=== PATIENT | female | born 1975 | race Caucasian/White ===

== ENCOUNTER 2019-06-04 22:55 | Emergency (ER) | payer OTHER ==
[~2019-06-04] VITALS: Ht 157.5 cm; Wt 62.6 kg
[2019-06-04 23:32] VITALS: BP 116/74
[2019-06-04] MEDS ORDERED: ACETAMINOPHEN 325 MG TABLET ONE (23:57)
--- NOTE | 2019-06-04 23:59 | NUR ---
FLU SWAB SENT TO LAB
[2019-06-05] MEDS ORDERED: ACETAMINOPHEN 325 MG TABLET PO ONE
== END 2019-06-05 00:22 | disposition home or self-care (01) ==
LOC: ER 23:01
DX: J06.9 Acute upper respiratory infection, unspecified (principal); Z98.890 Other specified postprocedural states

== ENCOUNTER 2019-09-14 22:31 | Emergency (ER) | payer OTHER ==
[~2019-09-14] VITALS: Ht 157.5 cm; Wt 62.6 kg
[2019-09-14 22:35] VITALS: BP 130/95
--- NOTE | 2019-09-14 23:13 | NUR ---
URINE COLLECTED AND SENT TO THE LAB.
--- NOTE | 2019-09-14 23:24 | NUR ---
PATIENT CAME TO ER C/O DYSURIA AND HEMATURIA FOR 5x HOURS. AAOX4. NO SOB. BREATHING EVENLY AND UNLABORED ON ROOM AIR.
[2019-09-14 23:44] LABS: APPEARANCE,URINE Clear (CLEAR); BILIRUBIN,URINE Negative (NEGATIVE); BLOOD, URINE Large Ery/uL (NEGATIVE); COLOR,URINE Pink (YELLOW); KETONES,URINE Negative (NEGATIVE); LEUKOCYTE ESTERASE ,URINE Small (NEGATIVE); NITRITE, URINE Negative (NEGATIVE); PH,URINE 8.5 (5.0-8.0); PROTEIN,URINE 100 mg/dl (NEGATIVE); UGLUCOSE Negative (NEGATIVE); UROBILINOGEN,URINE 0.2 EU/dL (0.2)
[2019-09-15] MEDS ORDERED: PHENAZOPYRIDINE HCL 200 MG TABLET PO ONE
[2019-09-15] MEDS ORDERED: NITROFURANTOIN/NITROFURAN MAC 100 MG CAPSULE PO ONE
[2019-09-15 00:03] LABS: BACTERIA,URINE Few /HPF (None Seen); RBC,URINE TOO NUMEROUS TO COUN /HPF (0-2); SQUAMOUS EPITHELIAL CELL,UR Few /HPF (None Seen)
[2019-09-15] MEDS ORDERED: NITROFURANTOIN/NITROFURAN MAC 100 MG CAPSULE ONE (00:18)
[2019-09-15] MEDS ORDERED: PHENAZOPYRIDINE HCL 200 MG TABLET ONE (00:18)
--- NOTE | 2019-09-15 00:25 | NUR ---
Patient discharged to home in stable condition. Written and verbal after care instructions given. Patient verbalizes understanding of instruction.
--- NOTE | 2019-09-15 00:26 | NUR ---
Prescriptions given to patient and explained.
== END 2019-09-15 00:27 | disposition home or self-care (01) ==
LOC: ER 22:35
DX: N30.90 Cystitis, unspecified without hematuria (principal); E03.9 Hypothyroidism, unspecified; Z98.890 Other specified postprocedural states
CPT/HCPCS: 81000-TC; 84703-TC; 87086-TC

== ENCOUNTER → 2020-01-20 | Emergency (ER) | payer OTHER ==
[~2020-01-20] VITALS: Ht 160 cm; Wt 59.9 kg
[~2020-01-20] MED LIST: HYDROCODONE/APAP 5/325MG TABLET ONE; ONDANSETRON 4 MG TAB.RAPDIS ONE
--- NOTE | 2020-01-20 01:31 | NUR ---
BIBSELF C/O HIGHBLOOD PRESSURE, HEADACHE X3 HRS. PT PLACED IN BED 7 ON MONITOR AND PULSE OX. VSS. NO ACUTE DISTRESS NOTED.
[2020-01-20 01:52] LABS: APPEARANCE,URINE CLEAR (CLEAR); BILIRUBIN,URINE NEGATIVE (NEGATIVE); BLOOD, URINE TRACE-INTA Ery/uL (NEGATIVE); COLOR,URINE YELLOW (YELLOW); KETONES,URINE NEGATIVE (NEGATIVE); LEUKOCYTE ESTERASE ,URINE NEGATIVE (NEGATIVE); NITRITE, URINE NEGATIVE (NEGATIVE); PROTEIN,URINE NEGATIVE (NEGATIVE); UGLUCOSE NEGATIVE (NEGATIVE); UROBILINOGEN,URINE 0.2 EU/dL (0.2)
[2020-01-20] MEDS: HYDROCODONE/APAP 5/325MG TABLET PO ONE (01:59)
[2020-01-20] MEDS: ONDANSETRON 4 MG TAB.RAPDIS SL ONE (01:59)
[2020-01-20 02:01] LABS: BACTERIA,URINE None seen /HPF (None Seen); RBC,URINE 0-2 /HPF (0-2); SQUAMOUS EPITHELIAL CELL,UR Few /HPF (None Seen); WBC,URINE 0-2 /HPF (0-3)
[2020-01-20 02:15] VITALS: BP 141/86
--- NOTE | 2020-01-20 02:15 | NUR ---
Patient discharged to home in stable condition. Written and verbal after care instructions given. Patient verbalizes understanding of instruction. Pt ambualted with steady gait. vss. Denies pain.
--- NOTE | 2020-01-20 02:16 | NUR ---
UNABLE TO DISCHARGE DUE TO MEDITEC
== END | disposition home or self-care (01) ==
LOC: ER 01:20
DX: G44.209 Tension-type headache, unspecified, not intractable (principal); E03.9 Hypothyroidism, unspecified; R94.31 Abnormal electrocardiogram [ECG] [EKG]; Z98.890 Other specified postprocedural states
CPT/HCPCS: 81001; 93005; 99284; Q0162; 81000-TC

== ENCOUNTER 2020-04-08 21:26 | Emergency (ER) | payer OTHER ==
[~2020-04-08] VITALS: Ht 160 cm; Wt 52.2 kg
[2020-04-08 21:30] VITALS: BP 148/92
[2020-04-08 22:08] LABS: BILIRUBIN,URINE NEGATIVE (NEGATIVE); BLOOD, URINE LARGE Ery/uL (NEGATIVE); COLOR,URINE ORANGE (YELLOW); LEUKOCYTE ESTERASE ,URINE MODERATE (NEGATIVE); NITRITE, URINE NEGATIVE (NEGATIVE); PH,URINE 7.5 (5.0-8.0); PROTEIN,URINE TRACE mg/dl (NEGATIVE); UGLUCOSE NEGATIVE (NEGATIVE); UROBILINOGEN,URINE 0.2 EU/dL (0.2)
[2020-04-08 22:53] LABS: BACTERIA,URINE Few /HPF (None Seen); RBC,URINE 81-100 /HPF (0-2); SQUAMOUS EPITHELIAL CELL,UR Few /HPF (None Seen); WBC,URINE 21-50 /HPF (0-3)
== END 2020-04-08 22:28 | disposition home or self-care (01) ==
LOC: ER 21:30
DX: N39.0 Urinary tract infection, site not specified (principal); E03.9 Hypothyroidism, unspecified; Z98.890 Other specified postprocedural states
CPT/HCPCS: 81001; 84703-TC; 87086-TC; 87186-TC